=== PATIENT | male | born 1960 | race Caucasian/White ===

== ENCOUNTER 2016-12-23 08:37 | Outpatient (CLI) | payer OTHER | END 2016-12-23 08:38 | LOC: NAVSJIPCSP 08:37 | PROVIDERS: ATTEND Internal Medicine | DX: E78.5 Hyperlipidemia, unspecified (principal) | CPT/HCPCS: 36415; 80061 ==

== ENCOUNTER 2017-03-24 08:32 | Outpatient (CLI) | payer OTHER ==
[2017-03-24 13:37] LABS: ALT (SGPT) 19 U/L (8-55); AST (SGOT) 46 U/L (5-34); Albumin 4.8 g/dL (3.5-5.0); Alkaline Phosphatase 61 U/L (40-150); Anion Gap 20 mmol/L (10-20); BUN (Urea Nitrogen) 15 mg/dL (8.4-25.7); Bilirubin, Total 0.7 mg/dL (0.2-1.2); Calc. Creatinine Clearance 0 mL/min (70-130); Calcium 9.8 mg/dL (7.8-10.44); Carbon Dioxide 20 mmol/L (22-29); Cardiac Risk 2.5 (Less than 4.5); Chloride 102 mmol/L (98-107); Cholesterol 190 mg/dL (< 200 Desired); Estimated GFR-MDRD Greater than 90; Globulin 3.6 g/dL (2.4-3.5); Glucose 92 mg/dL (70-105); HDL Cholesterol 77 mg/dL (>60 Neg Risk); LDL Cholesterol, Calculated 102 mg/dL; Potassium 4.5 mmol/L (3.5-5.1); Protein, Total 8.4 g/dL (6.0-8.3); Sodium 137 mmol/L (136-145); Triglycerides 56 mg/dL (Less than 150)
[2017-03-24 14:26] LABS: Hemoglobin 14.8 g/dL (14.0-18.0); MDiff Complete? YES; Mean Corpuscular HGB CONC 33.1 g/dL (32.0-36.0); Mean Corpuscular Hemoglobin 32.6 pg (27.0-31.0); Mean Corpuscular Volume 98.4 fl (80.0-94.0); Platelet Count 272 thou/uL (130-400); RBC Distribution Width 12.6 % (11.5-14.5); Red Blood Cell (RBC) Count 4.55 mill/uL (4.70-6.10); White Blood Cell (WBC) Count 6.8 thou/uL (4.8-10.8)
[2017-03-24 14:27] LABS: Eosinophils 3 % (0-10); Lymphocytes 34 % (21-51); Monocytes 12 % (0-10); Neutrophil 51 % (42-75); PLT Morphology Comment Appears Adequate
== END 2017-03-24 08:33 | disposition home or self-care (01) ==
LOC: NAVSJIPCSP 08:32
PROVIDERS: ATTEND Internal Medicine
DX: Z12.5 Encounter for screening for malignant neoplasm of prostate (principal); I11.9 Hypertensive heart disease without heart failure; B18.2 Chronic viral hepatitis C; Z79.899 Other long term (current) drug therapy
CPT/HCPCS: 36415; 80053; 80061; 81003; 85025; G0103

== ENCOUNTER 2017-03-31 14:21 | Outpatient (CLI) | payer OTHER ==
--- NOTE | 2017-03-31 15:29 | RAD ---
LEFT KNEE FOUR VIEWS: History: Knee pain. FINDINGS: There are arthritic changes of the knee. Changes are most pronounced in the medial compartment with mild medial compartment narrowing. There is minimal joint effusion. Vascular calcifications are note d. IMPRESSION: Mild arthritic changes of the knee. POS: [facility]
== END 2017-03-31 14:22 | disposition home or self-care (01) ==
LOC: NAV RAD 14:21
PROVIDERS: ATTEND Internal Medicine
DX: M25.562 Pain in left knee (principal); M25.462 Effusion, left knee

== ENCOUNTER 2018-03-02 18:01 | Emergency (ER) | payer OTHER ==
[2018-03-02] MEDS ORDERED: Adenosine 6 MG/2 ML VIAL ONE (18:12)
[2018-03-02] MEDS ORDERED: Sodium Chloride 0.9% 1,000 ML ONE (18:12)
== END 2018-03-02 19:05 | disposition home or self-care (01) ==
LOC: NAV ERS 18:01
DX: I47.1 Supraventricular tachycardia (principal); I10 Essential (primary) hypertension; F17.210 Nicotine dependence, cigarettes, uncomplicated
CPT/HCPCS: 93005; J0153; J7050

== ENCOUNTER 2024-01-28 07:49 | Outpatient (CLI) | payer MEDICARE | END 2024-01-28 07:50 | disposition home or self-care (01) | LOC: NAV RAD 07:49 | PROVIDERS: ATTEND Family Medicine | DX: M25.562 Pain in left knee (principal) ==